=== PATIENT | female | born 1945 | race Caucasian/White ===

== ENCOUNTER 2020-03-28 16:48 | Outpatient (CLI) | payer MEDICARE, SELFPAY ==
--- NOTE | ~2020-03-28 | XR_ITS ---
XR wrist RT 2V DATE: 03/28/2020 17:11 INDICATION: Fall. Lateral wrist pain TECHNIQUE: AP and lateral views COMPARISON: None FINDINGS: Linear virtually nondisplaced intra-articular radial styloid process fracture. No other fracture or dislocation. Osteopenia. IMPRESSION: Linear intra-articular virtually nondisplaced radial styloid process fracture Reviewed, dictated and finalized at location A. IMPRESSION: Linear intra-articular virtually nondisplaced radial styloid proces s fracture
== END 2020-03-28 16:49 | disposition home or self-care (01) ==
PROVIDERS: PCP Family Medicine; Visit Provider Physician Assistant
DX: M25.531 Pain in right wrist (principal)
CPT/HCPCS: 73100

== ENCOUNTER → 2022-01-16 09:48 | Outpatient (CLI) | payer MEDICARE, SELFPAY ==
--- NOTE | ~2022-01-16 | XR_ITS ---
EXAMINATION: XR lumbar spine 2-3V DATE: 01/16/2022 10:11 INDICATION: Unspecified sprain of unspecified hip. TECHNIQUE: Anteroposterior and lateral views of the lumbar spine, and cone-down lateral view of the l umbosacral junction were obtained. COMPARISON: None. FINDINGS: Mild thoracolumbar levocurvature. 3-4 mm anterolisthesis L4 on L5. Vertebral body heights are normal. Severe disc height loss at T11-T12, moderate disc height loss at T12-L1 and L4-L5 and mild disc heig ht loss at L1-L2, L3-L4 and L5-S1. Multilevel moderate to severe, lower lumbar predominant facet oste oarthritis. Mild bilateral sacroiliac osteoarthritis. Sacrum is otherwise unremarkable. Large amount of stool scattered throughout the colon. IMPRESSION: 1. Severe lower thoracic and moderate lumbar spondylosis. Reviewed, dictated and finalized at location B.
--- NOTE | ~2022-01-16 | XR_ITS ---
EXAMINATION: XR hip RT min 2V DATE: 01/16/2022 10:11 INDICATION: Unspecified sprain of unspecified hip, initial encounter. Right hip pain. TECHNIQUE: 2 views of right hip were obtained. COMPARISON: None. FINDINGS: Bone alignment is normal. No fracture. There is mild right hip osteoarthritis. IMPRESSION: 1. Mild right hip osteoarthritis. Reviewed, dictated and finalized at location A.
== END ==
PROVIDERS: PCP Family Medicine; Visit Provider Physician Assistant
DX: S73.101A Unspecified sprain of right hip, initial encounter (principal); M47.817 Spondylosis without myelopathy or radiculopathy, lumbosacral region; M17.11 Unilateral primary osteoarthritis, right knee
CPT/HCPCS: 72100; 73502

== ENCOUNTER 2022-07-22 14:31 | Outpatient (CLI) | payer MEDICARE, SELFPAY ==
--- NOTE | ~2022-07-22 | DEXA_ITS ---
Bone Density Report Name: AMBERLY PERES Age: 77 Sex: Female Ethnicity: White Date of : 1945 Indication: postmenopausal; screening for osteoporosis; height loss; Referring Provider: THIERRY JAMES Study: Bone densitometry was performed. Exam Date: July 22, 2022 Accession number: [id number] Bone Density: Region BMD T-score Z-score Classification AP Spine(L1-L4) 1.174 1.2 3.6 Normal Femoral Neck (Left) 0.745 -0.9 1.1 Normal Total Hip (Left) 1.060 1.0 2.8 Normal Femoral Neck (Right) 0.952 0.9 3.0 Normal Total Hip (Right) 1.063 1.0 2.8 Normal Total Hip Mean 1.062 1.0 2.8 Normal World Health Organization criteria for BMD impression classify patients as: Normal (T-score at or above -1.0), Osteopenia (T-score between -1.0 and -2.5), or Osteoporosis (T-score at or below -2.5). 10-year Fracture Risk: FRAX not reported because: All T-scores for Spine Total, Hip Total, Femoral Neck at or above -1.0 Clinical Information Provided by Patient: Patient maximum height was 62 Drinks caffeinated beverages Onset of menses at age 15 Number of children 3 Impression: The patient has normal bone mass. Discussion: BONE DENSITY IS ABOVE THE MINIMUM DESIRABLE LEVEL AT ALL SKELETAL SITES TESTED. This patient?s bone mineral density is above the minimum desirable level (T-score -1.0 or better) at all sites measured. The patient should follow a healthful lifestyle (good nutrition with adequate calcium and vitamin D, and appropriate weight-bearing exercise). Follow-Up: Consider repeating this study in 5 years or sooner if there is some new clinical indication. Reported by: [facility] on 07/22/2022 3:08:00 PM. Reviewed, dictated and finalized at location AAndry [facility]
--- NOTE | ~2022-07-22 | MM_ITS ---
EXAMINATION: MM screening herminia BI w fabiola HISTORY: Screening mammogram TECHNIQUE: Craniocaudal and mediolateral oblique 3-D tomosynthesis images were obtained and synthetic 2-D images were generated. CAD analysis was submitted and interpreted. COMPARISON: 03/23/2017, 06/05/2015 bilateral screening mammogram examinations BREAST PARENCHYMAL COMPOSITION: The breasts are almost entirely fatty. FINDINGS: Stable benign circumscribed lymph node in the lower outer right breast. There is no evidenc e of suspicious mass, calcification, or architectural distortion to suggest malignancy in either [address]. There has been no suspicious interval change. IMPRESSION: 1. No mammographic evidence of malignancy. 2. Recommend routine screening mammography in one year. BI-RADS Category 2: Benign finding(s). Reviewed, dictated and finalized at location A. IGN BANKNOTE TELLER TRADER
== END 2022-07-22 14:32 | disposition home or self-care (01) ==
PROVIDERS: PCP Family Medicine; Visit Provider Physician Assistant
DX: Z12.31 Encounter for screening mammogram for malignant neoplasm of breast (principal); Z78.0 Asymptomatic menopausal state
CPT/HCPCS: 77063; 77067; 77080

== ENCOUNTER 2023-09-23 12:19 | Outpatient (CLI) | payer MEDICARE, SELFPAY ==
--- NOTE | ~2023-09-23 | MM_ITS ---
EXAMINATION: MM screening herminia BI w fabiola HISTORY: Screening TECHNIQUE: Craniocaudal and mediolateral oblique 3-D tomosynthesis images were obtained and synthetic 2-D images were generated. CAD analysis was submitted and interpreted. COMPARISON: Comparison to multiple prior studies sequentially, with oldest reviewed study dated 08/2013. BREAST PARENCHYMAL COMPOSITION: Not Dense: Breast are almost entirely fatty. FINDINGS: There is no evidence of suspicious mass, calcification, or architectural distortion to sugg est malignancy in either breast. There has been no suspicious interval change. IMPRESSION: 1. No mammographic evidence of malignancy. 2. Recommend routine screening mammography in one year. BI-RADS Category 1: Negative Reviewed, dictated and finalized at location A. GEOVER OPERATOR
== END 2023-09-23 12:20 | disposition home or self-care (01) ==
PROVIDERS: PCP Family Medicine; Visit Provider Nurse Practitioner Family
DX: Z12.31 Encounter for screening mammogram for malignant neoplasm of breast (principal)
CPT/HCPCS: 77063; 77067

== ENCOUNTER 2024-12-14 08:45 | Outpatient (CLI) | payer MEDICARE, SELFPAY ==
--- NOTE | ~2024-12-14 | MM_ITS ---
EXAMINATION: MM screening herminia BI w fabiola HISTORY: Screening TECHNIQUE: Craniocaudal and mediolateral oblique 3-D tomosynthesis images were obtained and synthetic 2-D images were generated. CAD analysis was submitted and interpreted. COMPARISON: Comparison to multiple prior studies sequentially, with oldest reviewed study dated 05/23. BREAST PARENCHYMAL COMPOSITION: Not dense: There are scattered areas of fibroglandular density. FINDINGS: There is no evidence of suspicious mass, calcification, or architectural distortion to sugg est malignancy in either breast. There has been no suspicious interval change. IMPRESSION: 1. No mammographic evidence of malignancy. 2. Recommend routine screening mammography in one year. BI-RADS Category 1: Negative Reviewed, dictated and finalized at location A.
== END 2024-12-14 08:46 | disposition home or self-care (01) ==
PROVIDERS: PCP Family Medicine; Visit Provider Family Medicine
DX: Z12.31 Encounter for screening mammogram for malignant neoplasm of breast (principal)
CPT/HCPCS: 77063; 77067

== ENCOUNTER 2024-12-15 10:27 | Outpatient (CLI) | payer MEDICARE, SELFPAY ==
--- NOTE | ~2024-12-15 | CT_ITS ---
Procedure: CT shoulder RT wo con Ordering provider: Boy Castañeda MD History: . Preoperative planning . Comparison: None. Technique: Thin slice axial CT of the No IV contrast was given. Sagittal and coronal reformatted imag es were also obtained and reviewed. Radiation reduction technique utilized.The dose-length product wa s 484.86 mGy-cm. Findings: BONES: Bony fragment in the acromion process area is noted. Differential include nonunited apophysis versus old fracture with nonunion is possible. Elevation of the humeral head is noted with marked shon rowing of the distance between the head and the acromion process. Rotator cuff tear is highly suggest karl. JOINT SPACES: Moderate osteoarthritic changes in the acromioclavicular joint. Osteoarthritic changes are also seen between the bony fragments in the acromion technique and the acromion process. Severe o steoarthritic changes of the glenohumeral joint is also noted. SOFT TISSUES: Rotator cuff tear is highly suggestive. Atrophic supraspinatus muscle is seen. Slightly atrophic infraspinatus muscle. Mild atrophic changes of the subscapularis muscle. Minimal joint effu rosa. IMPRESSION: Bony fragment in the area of the acromion process. Osteoarthritic changes of the acromioclavicular and glenohumeral joints. Atrophic changes of the supraspinatous and infraspinatus muscles. Joint effusion versus a fluid in the subdeltoid bursa.. Reviewed, dictated and finalized at location A.
--- NOTE | 2024-12-15 11:08 | ECG_ITS ---
Test Date: 2024-12-15 11:20:45 Measurements Intervals [place] Rate: 80 P: 7 TN: 167 QRS: -15 QRSD: 87 T: 21 QT: 351 QTc: 407 Interpretive Statements SINUS RHYTHM CONSIDER INFERIOR INFARCT, AGE INDETERMINATE BASELINE ARTIFACT- I, II, III, AVL, AVF ABNORMAL ECG No previous ECG available for comparison Electronically Signed On 12-15-2024 12:01:54 CDT by Rupesh Rey D.O.
== END 2024-12-15 10:28 | disposition home or self-care (01) ==
PROVIDERS: PCP Family Medicine; Visit Provider Orthopaedic Surgery
DX: M19.011 Primary osteoarthritis, right shoulder (principal); I10 Essential (primary) hypertension
CPT/HCPCS: 73200; 93005

== ENCOUNTER 2025-01-03 09:20 | Outpatient (CLI) | payer MEDICARE, SELFPAY ==
--- NOTE | ~2025-01-03 | NM_ITS ---
EXAMINATION: NM jermaine stress w perfusion DATE: 01/03/2025 13:13 INDICATION: Abnormal EKG. Preoperative evaluation. TECHNIQUE: Rest images were obtained following intravenous administration of 11.2 mCi Tc99m tetrofosm in (Myoview). The patient was infused intravenously with Lexiscan (Regadenoson). Then, 34 mCi Tc99m t etrofosmin (Myoview) was administered intravenously, and stress images were obtained. Data was recons tructed into short axis and horizontal and vertical long axis SPECT images. Gated SPECT images were a lso obtained. COMPARISON: None. FINDINGS: There is no definite reversible or fixed perfusion abnormality to suggest ischemia or infar ction. There is normal left ventricular chamber size, wall motion and ejection fraction. Left ventr icular ejection fraction measures >70%. IMPRESSION: 1. Normal myocardial perfusion at rest and during stress. 2. Left ventricular ejection fraction measuring >70%. Reviewed, dictated and finalized at location A.
--- NOTE | 2025-01-03 10:00 | EST_ITS ---
Patient Info Name: Mary Bright Age: 79 years : 1945 Gender: Female Ht: 559 in Wt: 205 lbs BSA: 4.93 m2 HR: 103 bpm BP: 136 / 79 mmHg Exam Date: 01/03/2025 10:44 AM Patient Status: O Admit Date: 01/03/2025 Exam Type: CA stress jermaine w NM A regadenoson stress test was performed. Staff Referring Physician: Victorino Henry MD Attending Provider: Victorino Henry MD Exercise Technologist: Cira Garibay Exercise Physician: Rupesh Rey DO Summary 1. 1. Negative lexiscan stress test for ischemic ST changes by ECG criteria. 2. 2. Baseline sinus tachycardia. 3. 3. Nuclear scan to follow and will be reported separately. Please correlate with it. 4. 4. Patient informed of the above results. Protocol: Lexiscan Stress ECG Details Stage: REST Duration (min): 2 min : 18 sec HR (bpm): 118 SBP (mmHg): --- DBP (mmHg): --- Stage: REST Duration (min): 3 min : 5 sec HR (bpm): 103 SBP (mmHg): 136 DBP (mmHg): 79 Stage: REST Duration (min): 3 min : 58 sec HR (bpm): 110 SBP (mmHg): 136 DBP (mmHg): 79 Stage: STAGE 1 Duration (min): 0 min : 59 sec HR (bpm): 132 SBP (mmHg): 122 DBP (mmHg): 90 Stage: RECOVERY Duration (min): 1 min : 0 sec HR (bpm): 138 SBP (mmHg): 122 DBP (mmHg): 90 Stage: RECOVERY Duration (min): 2 min : 0 sec HR (bpm): 135 SBP (mmHg): 123 DBP (mmHg): 72 Stage: RECOVERY Duration (min): 3 min : 0 sec HR (bpm): 128 SBP (mmHg): 115 DBP (mmHg): 67 Stage: RECOVERY Duration (min): 3 min : 12 sec HR (bpm): 124 SBP (mmHg): 115 DBP (mmHg): 67 Rest HR: 110 bpm Peak HR: 140 bpm Rest Sys BP: 136 mmHg Peak Sys BP: 123 mmHg Max Pred HR: 143 bpm % Max Pred HR: 98 % Target HR: 122 bpm Max RPP: 17,220 bpm*mmHg Termination Reason: Completed protocol Cardiac Symptoms: Shortness of breath Total Time: 1 min : 0 sec Rest Torre BP: 79 mmHg Peak Torre BP: 72 mmHg Total Dose: 0.4 mg Resting ECG Sinus tachycardia. Stress ECG No ST changes. Arrhythmias None. Report Signatures
== END 2025-01-03 09:21 | disposition home or self-care (01) ==
PROVIDERS: PCP Family Medicine; Visit Provider Family Medicine
DX: Z01.818 Encounter for other preprocedural examination (principal); R94.31 Abnormal electrocardiogram [ECG] [EKG]
CPT/HCPCS: 78452; 93017; A9502; J2785

== ENCOUNTER 2025-03-28 09:57 | Outpatient (CLI) | payer MEDICARE, SELFPAY ==
[2025-03-28 11:03] LABS: Hematocrit 41.9 % (37.0-47.0); Hemoglobin 14.0 g/dL (12.0-15.0); Immature Granulocyte Percent A 0.2 % (0-0.5); Lymphocytes Absolute Auto 1.13 K/mm3 (0.9-3.2); Mean Corpuscular HGB Conc 33.4 g/dl (32-36); Mean Corpuscular Hemoglobin 30.7 pg (26-34); Mean Corpuscular Volume 91.9 fl (80-100); Nucleated Red Blood Cells Absolute Auto 0.000 K/mm3 (0.0-0.012); Nucleated Red Blood Cells Perc 0.0 % (0.0-0.2); Platelet Count Result 268 k/mm3 (150-375); Red Blood Count 4.56 M/mm3 (4.2-5.4); White Blood Count 5.9 K/mm3 (4.5-10.0)
[2025-03-28 12:17] LABS: MRSA (PCR) NOT DETECTED (NOT DETECTE)
== END 2025-03-28 09:58 | disposition home or self-care (01) ==
LOC: ANHSURGERY 10:10
PROVIDERS: PCP Family Medicine; Visit Provider Orthopaedic Surgery
DX: M12.811 Other specific arthropathies, not elsewhere classified, right shoulder (principal); Z01.818 Encounter for other preprocedural examination
CPT/HCPCS: 36415; 85025; 87641

== ENCOUNTER 2025-04-16 01:13 | Day surgery (SDC) | payer MEDICARE, SELFPAY ==
--- NOTE | 2025-03-28 10:09 | PC.NURSE ---
Report to the Outpatient Waiting Room, entrance under the green pavilion located off [facility], at time __10 AM on date _04/16/25 . Planned Procedure Time: __1200 NOON .? Time changes happen often and if your time is changed the preop area will call you the afternoon before. - You and your visitor will be asked to self-screen and do not enter if you have any COVID symptoms. Please call surgeon if you need to reschedule. - A mask is optional within the hospital at this time. Patients may have clear liquids (water, carbonated beverages, clear teas, apple juice) until 3 hours prior to surgery ( 9 AM) with a maximum of 20 ounces. - No food from midnight until time of surgery and no smoking, or chewing tobacco (or any form of nicotine). No chewing gum, candy or mints. - Take only the following medications with a SIP of water on the morning of surgery: ___LEVOTHYROXINE,METOPROLOL, TYLENOL WITH CODEINE IF NEEDED FOR PAIN DO NOT STOP ANY OF YOUR OTHER PRESCRIPTION MEDICATIONS PRIOR TO SURGERY EXCEPT THE FOLLOWING Hold all vitamins and supplements for 3 days per anesthesiologist.LAST DOSE 04/12/[address]LE[address] JEAN-DO NOT TAKE MORNING OF SURGERY Medications to discontinue per physician HOLD ZEPBOUND ___10 DAYS PRE OP PER ANESTHESIA LAST DOSE 04/05/25 Please no make-up, nail vietnamese, hairspray, perfume, deodorant, or body powder the day of surgery.? No jewelry (including any body piercings) or valuables the day of surgery, leave them at home.? Please take a shower or bath the night before, or the morning of, surgery with an antibacterial soap.? Wear comfortable, loose fitting clothing.? Children are encouraged to wear pajamas. - Jewelry must be removed prior to entering the operating room.? Rings and piercings that are not removed may be cut off. - The hospital will not accept responsibility for valuables.? - Please leave all valuables, including medications, at home the day of surgery. If you are going home after surgery, a licensed reach lift truck driver must drive you home.? - NO public transportation without another adult if you receive anesthesia. - We recommend that an adult stay with you for 24 hours following discharge. - We also recommend that you do not drive, make important decision, drink alcoholic beverages, or take any drugs that were not prescribed by your health care provider for at least 24 hours after your discharge time. For Pediatric surgeries, we recommend two adults accompany the child home. Follow any additional instructions given to you from your surgeon. VERBAL AND WRITTEN instructions given to __PATIENT_AND SON and asked if any additional questions and then verbalized understanding. Patient advised to call surgeon office or pre surgery nurse liaison [phone] if any additional questions.
[2025-03-28 10:13] VITALS: BMI 39.4
[2025-03-28 10:46] VITALS: BP 129/74; PULSE 88; RESP 18; TEMP 36.6; O2SAT 96
[2025-04-16] VITALS (14 sets, daily range): BP systolic 108–137; BP diastolic 55–69; PULSE 83–116; RESP 14–22; TEMP 35.6–36.8; O2SAT 94–99; BMI 38.9
--- NOTE | ~2025-04-16 | XR_ITS ---
EXAMINATION: XR shoulder RT min 2V DATE: 04/16/2025 15:06 INDICATION: Right reverse total shoulder arthroplasty TECHNIQUE: 3 views right shoulder FINDINGS: There is a right reversal total shoulder arthroplasty in expected position. Subcutaneous gas with soft tissue swelling are consistent with recent surgery. There is osteoarthritis of the acromioclavicular joint. IMPRESSION: 1. Recent reverse right total shoulder arthroplasty. Reviewed, dictated and finalized at location O.
--- NOTE | 2025-04-16 07:48 | WPDHPUPDATE1 ---
History and Physical Update Update Date/Time: 04/16/25 07:48 History and Physical has been reviewed, including an updated exam of the patient. There are NO changes in the patient's condition. Risks, benefits, and alternatives have been discussed and questions answered. Patient agrees to proceed with procedure.
[2025-04-16] MEDS: ACETAMINOPHEN 500 MG TABLET 1000 MG PO (11:15)
[2025-04-16] MEDS: TRANEXAMIC ACID 1,000MG/ISO100 1,000 MG/100 ML BAG 200 MG IVPB (11:42)
--- NOTE | 2025-04-16 11:50 | WPDANESEPPF ---
Anes - Initial Pre Proc Eval Procedure: Operation Date: 04/16/25 12:00 Proposed Procedures p Right Reverse Total Shoulder Arthroplasty - Boy Castañeda MD Date/Time: 04/16/25 11:50 Surgeon: Boy Castañeda MD Pre Op Diagnosis: Rt rot cuff arthropathy Patient Data Age: 79 Gender: F Height: 1.5 m Weight: 87.4 kg Last Vital Signs Temp 36.8 C 04/16/25 11:39 Pulse 88 04/16/25 11:39 Resp 18 03/28/25 10:46 BP 123/64 04/16/25 11:39 Pulse Ox 99 04/16/25 11:39 O2 Del Method Room Air 04/16/25 11:39 Allergies Allergy/AdvReac Type Severity Reaction Status Date / Time menthol AdvReac Intermediate Rash Verified 04/16/25 11:17 Home Medications ?Medication ?Instructions ?Recorded ?Confirmed ?Type cranberry 500 mg capsule 500 mg PO BID 11/11/22 03/28/25 History cholecalciferol (vitamin D3) 125 125 mcg PO DAILY #90 caps 05/14/23 03/28/25 Rx mcg (5,000 unit) capsule atorvastatin 10 mg tablet See Rx Instructions .Route 12/04/24 03/28/25 Rx .COMPLEX #90 tabs metoprolol succinate 50 mg See Rx Instructions .Route 12/04/24 04/16/25 Rx tablet,extended release 24 hr .COMPLEX #90 tabs oxybutynin chloride 5 mg See Rx Instructions .Route 12/14/24 03/28/25 Rx tablet,extended release 24 hr .COMPLEX #90 tabs celecoxib 200 mg capsule See Rx Instructions .Route 01/29/25 04/16/25 Rx .COMPLEX #90 caps tirzepatide (weight loss) 10 10 mg (0.5 mL) subcut WEEKLY #2 mL 01/30/25 04/16/25 Rx mg/0.5 mL subcutaneous solution omeprazole 20 mg capsule,delayed 20 mg PO DAILY #30 caps 02/02/25 03/28/25 Rx release acetaminophen 300 mg-codeine 30 mg 1 tablet PO Q8H PRN pain #30 tabs 02/15/25 03/28/25 Rx tablet levothyroxine 88 mcg tablet 88 mcg PO DAILY #90 tabs 02/15/25 04/16/25 Rx (Synthroid) Laboratory Tests 04/16/25 11:05 Blood Type Pending Antibody Screen Pending Patient hx anesthesia problems: none Family hx anesthesia problems: none Results Review: All pre-operative results and documents have been reviewed as part of the pre-operative evaluation. [facility] Past Medical History Medical History COVID-19 Obesity Essential (primary) hypertension Morbid (severe) obesity due to excess calories Surgical History Surgical History History of back surgery History of carpal tunnel release of both wrists Family History Family History Father Family history of tuberculosis Sibling Diabetes mellitus Other Family history of human immunodeficiency virus infection Family history of hypercholesterolemia Hypertension Social History Social History Smoking status: Never smoker Second hand tobacco smoke exposure: No Alcohol intake: never Substance use: never Substance use type: does not use Lack of Transportation: No Lack of Food: Never True Current Housing: I Have Housing Concerned About Future Housing: No Difficulty Paying Gas/Electric Bills: No Difficulty Paying for Meds: No Currently Unemployed: No Education: High School Diploma/GED Difficulty w/ Childcare or Family Care: No Living arrangements: alone Occupation/Education: retired Gender identity (if verbalized by the patient): Female Spiritual care concerns: No Agree to blood products: Yes Anes - Eval Final PreProcedure Day of Procedure 04/16/25 11:50 Patient weight: obese Heart: regular rate and rhythm Lungs: decreased breath sounds Airway: Mallampati scale class III Neurological: alert and oriented Last oral intake: >/= 8 hours ASA classification: III Emergent: no Anesthetic plan: proceed Anesthesia type and monitoring: general ETT and standard monitoring Results Review: All pre-operative results and documents have been reviewed as part of the pre-operative evaluation. Informed Consent: The patient's anesthetic plan and its attendant risks and benefits were discussed with the patient/family/POA. Questions were solicited and answers provided to the satisfaction of the patient/family/POA.
[2025-04-16] MEDS: SODIUM CHLORIDE 0.9% IV 37.7 ML, MORPHINE SULFATE INJ (*CRX) 2 MG, ROPivacaine HCL 1% 2... INFILTRATE (12:51)
[2025-04-16] MEDS: ceFAZolin 2 GM in SODIUM CHLORIDE 0.9% IV 50 ML 100 ML IVPB ×2 (12:51→20:22)
[2025-04-16] MEDS: VANCOMYCIN HCL 1,000 MG VIAL 1000 MG TOPICAL (13:54)
[2025-04-16] MEDS: TRANEXAMIC ACID 1,000 MG/10 ML AMPUL 1000 MG IV PUSH (14:08)
[2025-04-16] MEDS: LACTATED RINGERS 1,000 ML 30 ML IV CONT ×2 (14:35)
[2025-04-16] MEDS: fentaNYL CITRATE INJ (*CRX) 100 MCG/2 ML VIAL 25 MCG IV PUSH ×8 (14:47→15:35)
--- NOTE | 2025-04-16 15:08 | W.PM.PROC2 ---
Procedure Note - Detailed Date of Procedure 04/16/25 Pre-op Diagnosis Rotator cuff arthropathy right shoulder. Post-op Diagnosis Same Procedure Performed Reverse total shoulder arthroplasty, right Surgeon Boy Castañeda MD Anesthesia General Indications End stage cuff tear arthropathy. Findings Severe glenoid bone loss. Corrected with 15 degree augmented baseplate. Moderate proximal bone absorption managed with cementation of the humeral stem. Near complete loss of rotator cuff tissue. Partial repair of the subscapularis was possible. Teres minor intact only posteriorly. Description of Procedure Preoperative antibiotics were given. The patient was transferred to the operating room and a general anesthetic was administered. The beach chair position was used at 45 degrees. All bony prominences were padded. The head was carefully stabilized on the [facility] access hospital overhead cleaner maintainer. A sterile prep and drape was performed in the usual manner with ChloraPrep. A longitudinal incision was created at the anterior shoulder just lateral to the deltopectoral interval. Careful dissection was performed to expose the interval and protect the cephalic vein. The vein was retracted medially. The upper border of the pectoralis was released. Anterior circumflex vessel branches were suture ligated. The biceps was previously ruptured. A subscapularis tenotomy was performed. The inferior capsule was released, exposing the humeral head. Osteophytes were removed. Care was taken to stay on bone to protect the axillary nerve. The neck anteversion and inclination were carefully assessed. Version was between 20? and 30?. The anatomic head cut was taken with the oscillating saw. The cut protector was placed, and attention was turned to the glenoid. Retractors were placed. Releases were carried out for exposure. The subscapularis was mobilized, the inferior capsule and long head of triceps released, and the superior and middle glenohumeral ligaments released as well. Labral tissue was resected as needed. Version and inclination were corrected according to preoperative templating. The sizing template was used to assess the baseplate position low on the glenoid, with an approximate 15 degrees corrections of retroversion and 15 degrees of inclination. A guide pin was placed. Minimal reaming was used to accomplish a flat surface without violating the subchondral bone. The boss was drilled, and the real component was impacted into position. The central compression screw was placed. Supplemental locking screws were placed superiorly, and inferiorly. The glenosphere was impacted into the taper. Attention was turned to the humerus. The guide pin was placed, central drilling performed, and the broach trial inserted. The proximal humerus was reamed for the inset component. The humeral components were trialed. The real humeral stem, tray, and insert were impacted into position, with cementation of stem, leaving the proximal stem available for ingrowth. The shoulder was copiously irrigated periodically with pulsatile lavage. The shoulder was reduced and stability confirmed. 1 gram of Vancomycin powder was placed in the joint. The pectoralis upper border tendon was repaired. The remaining tissue was closed with 2-0 Vicryl, 3-0 Stratafix and 4-0 Stratafix, and steri-strips. A sterile silver occlusive dressing and shoulder immobilizer were placed. The patient was transferred to the recovery room. Implants Shoulder [employer]ations reverse TSA size 0 stem. +3 polyethylene insert. 15 augmented baseplate. 33 + 3 mm glenosphere. Estimated Blood Loss 200 Drains No Pathology None sent Complications No immediate complications Condition Stable Disposition PACU [facility] Billing Surgery - Charge Forward: Surgery Billing
[2025-04-16] MEDS: HYDROmorphone HCL INJ (*CRX) 1 MG/ML SYR 0.5 MG IV PUSH ×2 (15:55→16:14)
--- NOTE | 2025-04-16 16:37 | ADMGEN ---
This patient, Mary Bright, was admitted to 3 [facility] Surg Room 319-01. Patient/family oriented to hospital policies and general routines including ID bracelet, bed and alarms, visiting hours, pain management, procedures, bathroom and other care routines, personal items, smoking policy, room service/diet, and visiting hours. Information on how to activate the Rapid Response Team has been discussed. Patient/Family are encouraged to report perceived risks to care and to ask questions if they do not understand what they are told or what they should do.
[2025-04-16] MEDS: ACETAMINOPHEN 325 MG TABLET 650 MG PO (17:40)
[2025-04-16] MEDS: SENNA/DOCUSATE SODIUM TABLET 2 TAB PO (17:40)
[2025-04-16] MEDS: ASPIRIN 81 MG ENTERIC TABLET PO (17:40)
[2025-04-16] MEDS: ONDANSETRON INJ 4 MG/2 ML VIAL IV PUSH (17:51)
[2025-04-16] MEDS: SODIUM CHLORIDE 0.9% IV 1,000 ML 125 ML IV CONT (17:51)
[2025-04-16] MEDS: HYDROmorphone HCL INJ (*CRX) 1 MG/ML SYR IV PUSH ×2 (20:21→23:30)
[2025-04-17 02:21] VITALS: BP 119/69; PULSE 102; RESP 18; TEMP 36.8; O2SAT 96
[2025-04-17] MEDS: ACETAMINOPHEN/CODEINE (*CRX) 300/30 MG TABLET 1 TAB PO (04:09)
[2025-04-17] MEDS: ceFAZolin 2 GM in SODIUM CHLORIDE 0.9% IV 50 ML 100 ML IVPB ×2 (04:12→12:18)
[2025-04-17] MEDS: HYDROmorphone HCL INJ (*CRX) 1 MG/ML SYR IV PUSH (05:45)
[2025-04-17] MEDS: LEVOTHYROXINE SODIUM 88 MCG TABLET PO (05:45)
[2025-04-17 06:18] VITALS: BP 107/51; PULSE 96; RESP 20; TEMP 36.9; O2SAT 100
[2025-04-17 06:18] LABS: Hematocrit 37.5 % (37.0-47.0); Hemoglobin 11.8 g/dL (12.0-15.0); Immature Granulocyte Percent A 0.4 % (0-0.5); Lymphocytes Absolute Auto 1.64 K/mm3 (0.9-3.2); Mean Corpuscular HGB Conc 31.5 g/dl (32-36); Mean Corpuscular Hemoglobin 30.9 pg (26-34); Mean Corpuscular Volume 98.2 fl (80-100); Nucleated Red Blood Cells Absolute Auto 0.000 K/mm3 (0.0-0.012); Nucleated Red Blood Cells Perc 0.0 % (0.0-0.2); Platelet Count Result 260 k/mm3 (150-375); Red Blood Count 3.82 M/mm3 (4.2-5.4); White Blood Count 15.2 K/mm3 (4.5-10.0)
[2025-04-17 06:59] LABS: Anion Gap 7 mmol/L (4-12); Blood Urea Nitrogen 28 mg/dL (7-17); Calcium 9.4 mg/dL (8.4-10.2); Carbon Dioxide 26 mmol/L (22-30); Chloride 101 mmol/L (98-107); Estimated Glomerular Filt Rate > 60; Glucose 126 mg/dL (65-110); Potassium 5.1 mmol/L (3.4-5.0); Sodium 134 mmol/L (137-145)
[2025-04-17 07:22] VITALS: O2SAT 100
[2025-04-17 07:50] VITALS: BP 113/62; PULSE 108; RESP 18; TEMP 36.4; O2SAT 100
[2025-04-17] MEDS: SENNA/DOCUSATE SODIUM TABLET 2 TAB PO (07:59)
[2025-04-17 08:00] VITALS: PULSE 100
[2025-04-17] MEDS: oxyBUTYnin CHLORIDE XL 5 MG TAB.ER.24 PO (08:00)
[2025-04-17] MEDS: METOPROLOL SUCCINATE EXT REL 50 MG TABCR PO (08:00)
[2025-04-17] MEDS: PANTOPRAZOLE 40 MG TABLET PO (08:00)
[2025-04-17] MEDS: ASPIRIN 81 MG ENTERIC TABLET PO (08:00)
[2025-04-17] MEDS: ATORVASTATIN 10 MG TABLET PO (08:00)
[2025-04-17] MEDS: CELECOXIB 200 MG CAPSULE PO (08:00)
[2025-04-17] MEDS: CHOLECALCIFEROL (VITAMIN D3) 125 MCG (5,000 UNITS) TABLET PO (08:00)
[2025-04-17] MEDS: oxyCODONE/ACETAMINOPHEN (*CRX) 10-325 MG TABLET 1 TAB PO ×2 (08:01→13:50)
[2025-04-17 11:47] VITALS: BP 119/50; PULSE 89; RESP 16; TEMP 36.4; O2SAT 98
== END 2025-04-17 14:32 | disposition home or self-care (01) ==
LOC: ANHSURGERY 16:12 → ANH3MEDSUR 16:23
PROVIDERS: PCP Family Medicine; Visit Provider Orthopaedic Surgery
PROC: (CPT 23472; principal; 2025-04-16 12:00)
DX: M12.811 Other specific arthropathies, not elsewhere classified, right shoulder (principal); M25.711 Osteophyte, right shoulder; I10 Essential (primary) hypertension; E66.9 Obesity, unspecified; Z68.38 Body mass index [BMI] 38.0-38.9, adult; Z79.85 Long-term (current) use of injectable non-insulin antidiabetic drugs; Z79.1 Long term (current) use of non-steroidal anti-inflammatories (NSAID); Z98.890 Other specified postprocedural states; Z98.1 Arthrodesis status
CPT/HCPCS: 23472; 36415; 73030; 80048; 85025; 86850; 86900; 86901; 97110; 97161; 97165; 97530; J0690; A4565; A9270; C1713; C1776; J0166; J1100; J1171; J1885; J2003; J2270; J2405; J2704; J2795; J3010; J3373; J7030; J7120

== ENCOUNTER 2025-06-11 14:10 | Outpatient (CLI) | payer MEDICARE, SELFPAY ==
--- NOTE | ~2025-06-11 | CT_ITS ---
EXAMINATION: CT_[id number]_CT DATE: 06/11/2025 14:34 INDICATION: Left shoulder arthritis for preoperative evaluation TECHNIQUE: High resolution computed tomography (CT) of the left shoulder was performed without intravenous contrast. Additional sagittal and coronal reconstructions were performed. Automated exposure control and iterative reconstruction technique were employed. The dose-length product was 383.59 mGy-cm. COMPARISON: Left shoulder radiographs dated 12/04/2024 FINDINGS: No fracture. Right rotator cuff arthropathy with cephalad subluxation of the humeral head with respect to the glenoid resulting in severe narrowing of the subacromial space with cystic changes and remodeling of the undersurface of the acromion and the abutting cephalad aspect of the humeral head. Chronic rotator cuff tear with small amount of heterotopic ossification likely along the torn supraspinatus tendon at level of the base of the coracoid process and with severe fatty atrophy supraspinatus and infraspinatus muscle bellies and moderate fatty atrophy of the subscapularis and teres minor muscle bellies there is severe left glenohumeral and acromioclavicular osteoarthritis. There is remodeling of the glenoid with loss of bone stock at the central to posterior glenoid resulting in mild acquired retroversion the cephalad two thirds of the glenoid. Moderate subarticular cystic change underlying a significant portion of the cephalad half of the glenoid. There is prominent hypertrophic change along the lesser tuberosity and at the medial lateral margins of the cephalad aspect of the intertubercular groove. No pathologically enlarged lymphadenopathy at the left axilla, left hilum versus clavicular region. Visualized portion of the left neck and mediastinum. Dense mitral annular calcification. No pericardial or pleural effusion. Moderate to severe spondylosis of the visualized mid to caudal cervical spine and moderate spondylosis of the visualized mid to upper thoracic spine. IMPRESSION: 1. Large chronic left rotator cuff tear with moderate to severe fatty atrophy of the rotator cuff musculature and secondary rotator cuff arthropathy with cephalad subluxation of the humeral head which abuts and remodels the undersurface of the acromion. 2. 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 3. Moderate to severe cervical and moderate thoracic spondylosis. Reviewed, dictated and finalized at location A. IMPRESSION: 1. Large chronic left rotator cuff tear with moderate to severe fatty atrophy o f the rotator cuff musculature and secondary rotator cuff arthropathy with ceph alad subluxation of the humeral head which abuts and remodels the undersurface of the acromion. 2. 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 3. Moderate to severe cervical and moderate thoracic spondylosis.
[2025-06-11 15:10] LABS: Hematocrit 39.3 % (37.0-47.0); Hemoglobin 12.7 g/dL (12.0-15.0)
[2025-06-11 15:24] LABS: Albumin Level 4.1 g/dL (3.5-5.1); Estimated Glomerular Filt Rate 58; Glucose 92 mg/dL (65-110)
== END 2025-06-11 14:11 | disposition home or self-care (01) ==
PROVIDERS: PCP Family Medicine; Visit Provider Orthopaedic Surgery
DX: M12.812 Other specific arthropathies, not elsewhere classified, left shoulder (principal); Z01.818 Encounter for other preprocedural examination; E78.5 Hyperlipidemia, unspecified; E55.9 Vitamin D deficiency, unspecified
CPT/HCPCS: 36415; 73200; 82040; 82565; 82947; 85014; 85018

== ENCOUNTER 2025-08-22 07:35 | Outpatient (CLI) | payer MEDICARE, SELFPAY ==
[2025-08-22 09:18] LABS: Hematocrit 39.8 % (37.0-47.0); Hemoglobin 13.3 g/dL (12.0-15.0); Immature Granulocyte Percent A 0.3 % (0-0.5); Lymphocytes Absolute Auto 1.48 K/mm3 (0.9-3.2); Mean Corpuscular HGB Conc 33.4 g/dl (32-36); Mean Corpuscular Hemoglobin 30.8 pg (26-34); Mean Corpuscular Volume 92.1 fl (80-100); Nucleated Red Blood Cells Absolute Auto 0.000 K/mm3 (0.0-0.012); Nucleated Red Blood Cells Perc 0.0 % (0.0-0.2); Platelet Count Result 261 k/mm3 (150-375); Red Blood Count 4.32 M/mm3 (4.2-5.4); White Blood Count 6.7 K/mm3 (4.5-10.0)
[2025-08-22 10:28] LABS: MRSA (PCR) NOT DETECTED (NOT DETECTE)
== END 2025-08-22 07:36 | disposition home or self-care (01) ==
LOC: ANHSURGERY 07:41
PROVIDERS: PCP Family Medicine; Visit Provider Orthopaedic Surgery
DX: M12.812 Other specific arthropathies, not elsewhere classified, left shoulder (principal); Z01.818 Encounter for other preprocedural examination
CPT/HCPCS: 36415; 85025; 87641